=== PATIENT | male | born 1940 | race Caucasian/White ===

== ENCOUNTER 2025-05-15 06:51 | Emergency (ER) | payer MEDICARE ==
[2025-05-15 07:44] LABS: #Basophils 0.03 10x3/uL (0.0-0.2); #Eosinophils Less than 0.03 10x3/uL (0.0-0.7); #Monocytes 2.30 10x3/uL (0.11-0.59); #Neutrophils 12.82 10x3/uL (1.40-6.50); %Basophils 0.2 % (0.0-1.0); %Eosinophils 0.0 % (0.0-10.0); %Lymphocytes 7.3 % (21.0-51.0); %Monocytes 14.0 % (0.0-10.0); %Neutrophils 78.0 % (42.0-75.0); Hematocrit 37.9 % (42.0-52.0); Hemoglobin 12.8 g/dL (14.0-18.0); Mean Corpuscular Hemoglobin 28.0 pg (27.0-31.0); Mean Corpuscular Volume 82.9 fL (78.0-98.0); Platelet Count 252 10x3/uL (130-400); Red Blood Cell (RBC) Count 4.57 mill/uL (4.70-6.10); White Blood Cell (WBC) Count 16.44 10x3/uL (4.8-10.8)
[2025-05-15 08:07] LABS: ALT (SGPT) 23 U/L (Less than 45); AST (SGOT) 37 U/L (11-34); Albumin 3.6 g/dL (3.1-4.5); Alkaline Phosphatase 71 U/L (40-110); Anion Gap 16 mmol/L (10-20); BUN (Urea Nitrogen) 16 mg/dL (8.4-25.7); Bilirubin, Total 0.5 mg/dL (0.3-1.2); Calc. Creatinine Clearance 0 mL/min (70-130); Calcium 9.2 mg/dL (7.8-10.44); Carbon Dioxide 19 mmol/L (23-31); Chloride 102 mmol/L (98-107); Globulin 2.9 g/dL (2.4-3.5); Glucose 117 mg/dL (83-110); Potassium 4.2 mmol/L (3.5-5.1); Sodium 133 mmol/L (136-145)
[2025-05-15] MEDS ORDERED: cefTRIAXone (ROCEPHIN) 2 GM VIAL ONE (08:18)
[2025-05-15] MEDS ORDERED: Oseltamivir 75 MG CAP ONE (08:18)
[2025-05-15] MEDS ORDERED: Azithromycin 500 MG VIAL ONE (08:38)
== END 2025-05-15 10:27 | disposition home or self-care (01) ==
LOC: ERS 06:51
DX: J10.1 Influenza due to other identified influenza virus with other respiratory manifestations (principal); N18.9 Chronic kidney disease, unspecified; E87.1 Hypo-osmolality and hyponatremia; R79.89 Other specified abnormal findings of blood chemistry; Z79.899 Other long term (current) drug therapy
CPT/HCPCS: 71045; 80053; 83605; 84484; 85025; 87040; 87428; 93005; J0456; J0696; J7050; 96365; 96367